=== PATIENT | male | born 1950 | race Two or more races ===

== ENCOUNTER 2018-10-24 09:02 | Emergency (ER) | payer MEDICARE, MEDICAID ==
[~2018-10-24] VITALS: Ht 165.1 cm; Wt 80.7 kg
[2018-10-24 10:04] LABS: Urine WBC None Seen /hpf (0 - 3)
[2018-10-24 10:13] LABS: Basophils # (auto) 0.1 uL; Basophils % (auto) 0.5 % (0.0-2.0); Eosinophils # (auto) 0.1 uL; Eosinophils % (auto) 0.6 % (0.0-7.0); Hematocrit 41.5 % (41.0-53.0); Hemoglobin 14.1 g/dL (13.5-17.5); Lymphocytes # (auto) 1.8 uL; Mean Corpuscular Hemoglobin 30.5 pg (28.0-32.0); Mean Corpuscular Hgb Conc. 33.9 g/dL (32.0-36.0); Mean Corpuscular Volume 89.8 fL (80.0-100.0); Monocytes # (auto) 0.5 uL; Neutrophils # (auto) 7.8 uL; Neutrophils % (auto) 75.9 % (37.0-80.0); Platelet Count (auto) 203 10^3/uL (140-450); Red Blood Cells 4.63 10^6/uL (4.5-5.90); White Blood Cell 10.3 10^3/uL (4.4-10.8)
[2018-10-24 10:14] LABS: Urine Bacteria NONE SEEN /hpf (None Seen); Urine Blood Negative /uL (Negative); Urine Specific Gravity 1.009 (1.001-1.035)
[2018-10-24 10:31] LABS: Alanine Aminotransferase 26 U/L (16-61); Albumin 3.8 g/dL (3.4-5.0); Anion Gap 10 (5-15); Aspartate Aminotransferase 12 U/L (15-37); BUN/Creatinine Ratio 9.6; Blood Urea Nitrogen 8 mg/dL (7-18); Calcium 8.4 mg/dL (8.5-10.1); Carbon Dioxide 23 mmol/L (21-32); Chloride 104 mmol/L (98-107); GFR African American 118 mL/min; GFR Non-African American 98 mL/min; Glucose 140 mg/dL (74-106); Potassium 3.4 mmol/L (3.5-5.1); Sodium 137 mmol/L (136-145)
[2018-10-24 10:36] LABS: Alkaline Phosphatase 44 U/L (45-117); Bilirubin, Total 0.8 mg/dL (0.2-1.0); Total Protein 6.9 g/dL (6.4-8.2)
[2018-10-24] MEDS ORDERED: POTASSIUM EFFERVESENT TAB 25 MEQ PO ONE (11:45)
[2018-10-24 13:10] VITALS: BP 124/59
== END 2018-10-24 13:15 | disposition home or self-care (01) ==
LOC: ER 09:02
DX: R33.9 Retention of urine, unspecified (principal); R10.30 Lower abdominal pain, unspecified; R30.0 Dysuria; R35.0 Frequency of micturition; E11.9 Type 2 diabetes mellitus without complications; I10 Essential (primary) hypertension; I25.810 Atherosclerosis of coronary artery bypass graft(s) without angina pectoris; Z88.1 Allergy status to other antibiotic agents
CPT/HCPCS: 36415; 51702; 71045; 80053; 81001; 84154; 84484; 85025

== ENCOUNTER 2018-10-25 17:21 | Emergency (ER) | payer MEDICARE, MEDICAID ==
[~2018-10-25] VITALS: Ht 165.1 cm; Wt 80.7 kg
[2018-10-25 17:53] VITALS: BP 161/50
== END 2018-10-25 20:39 | disposition left against medical advice (07) ==
LOC: ER 17:21
DX: R33.9 Retention of urine, unspecified (principal); Z53.21 Procedure and treatment not carried out due to patient leaving prior to being seen by health care provider

== ENCOUNTER 2018-10-29 09:19 | Emergency (ER) | payer MEDICARE, MEDICAID ==
[~2018-10-29] VITALS: Ht 162.6 cm; Wt 80.7 kg
[2018-10-29 10:25] VITALS: BP 157/69
== END 2018-10-29 10:59 | disposition home or self-care (01) ==
LOC: ER 09:19
DX: R33.9 Retention of urine, unspecified (principal); I25.10 Atherosclerotic heart disease of native coronary artery without angina pectoris; E11.9 Type 2 diabetes mellitus without complications; E78.00 Pure hypercholesterolemia, unspecified; I10 Essential (primary) hypertension; Z95.1 Presence of aortocoronary bypass graft; Z88.1 Allergy status to other antibiotic agents

== ENCOUNTER 2018-11-01 08:52 | Emergency (ER) | payer MEDICARE, MEDICAID ==
[~2018-11-01] VITALS: Ht 162.6 cm; Wt 80.7 kg
[2018-11-01 09:22] VITALS: BP 162/65
== END 2018-11-01 10:09 | disposition home or self-care (01) ==
LOC: ER 08:54
DX: Z46.6 Encounter for fitting and adjustment of urinary device (principal); E11.9 Type 2 diabetes mellitus without complications; E78.5 Hyperlipidemia, unspecified; I10 Essential (primary) hypertension; Z95.1 Presence of aortocoronary bypass graft; Z88.1 Allergy status to other antibiotic agents

== ENCOUNTER 2020-01-28 08:58 | Emergency (ER) | payer MEDICARE, MEDICAID ==
[2020-01-28] MEDS ORDERED: cloNIDine HCL 0.1 MG TAB PO ONE (09:45)
[2020-01-28 10:11] LABS: Albumin 3.9 g/dL (3.4-5.0); Anion Gap 9 (5-15); Blood Urea Nitrogen 11 mg/dL (7-18); Calcium 8.5 mg/dL (8.5-10.1); Carbon Dioxide 23 mmol/L (21-32); Chloride 106 mmol/L (98-107); Glucose 157 mg/dL (74-106); Potassium 3.6 mmol/L (3.5-5.1); Sodium 138 mmol/L (136-145)
[2020-01-28 10:17] LABS: Alanine Aminotransferase 63 U/L (16-61); Alkaline Phosphatase 49 U/L (45-117); Aspartate Aminotransferase 22 U/L (15-37); BUN/Creatinine Ratio 12.2; Bilirubin, Total 0.8 mg/dL (0.2-1.0); GFR African American 108 mL/min; GFR Non-African American 89 mL/min; Total Protein 7.5 g/dL (6.4-8.2)
[2020-01-28 10:41] LABS: Basophils # (auto) 0.1 10 ^3/uL (0-0.2); Basophils % (auto) 1.1 % (0.0-2.0); Eosinophils # (auto) 0.1 10 ^3/uL (0-0.8); Eosinophils % (auto) 1.8 % (0.0-7.0); Hematocrit 44.3 % (41.0-53.0); Lymphocytes # (auto) 2.7 10 ^3/uL (0.4-5.4); Lymphocytes % (auto) 33.1 % (10.0-50.0); Mean Corpuscular Hemoglobin 30.1 pg (28.0-32.0); Mean Corpuscular Hgb Conc. 33.9 g/dL (32.0-36.0); Mean Corpuscular Volume 88.8 fL (80.0-100.0); Monocytes # (auto) 0.4 10 ^3/uL (0-1.3); Monocytes % (auto) 4.7 % (0.0-12.0); Neutrophils # (auto) 4.9 10 ^3/uL (1.6-8.6); Neutrophils % (auto) 59.3 % (37.0-80.0); Platelet Count (auto) 204 10^3/uL (140-450); Red Blood Cells 4.99 10^6/uL (4.5-5.90); Red Cell Distribution Width 13.9 % (11.8-14.3); White Blood Cell 8.2 10^3/uL (4.4-10.8)
[2020-01-28 12:06] VITALS: BP 125/65
[2020-01-28 13:03] LABS: Urine Bacteria NONE SEEN /hpf (None Seen); Urine Blood Negative /uL (Negative); Urine Mucus FEW (None Seen); Urine Specific Gravity 1.012 (1.001-1.035); Urine WBC 1 /hpf (0 - 3)
== END 2020-01-28 13:21 | disposition home or self-care (01) ==
LOC: ER 08:58
DX: I10 Essential (primary) hypertension (principal); E11.65 Type 2 diabetes mellitus with hyperglycemia; E78.5 Hyperlipidemia, unspecified; Z88.1 Allergy status to other antibiotic agents
CPT/HCPCS: 36415; 70450; 80053; 81001; 82962; 84484; 85025

== ENCOUNTER 2020-06-16 09:54 | Emergency (ER) | payer MEDICARE, MEDICAID ==
[~2020-06-16] VITALS: Ht 165.1 cm; Wt 84.4 kg
[2020-06-16 09:54] VITALS: BP 168/73
[2020-06-16 10:32] LABS: Basophils # (auto) 0.1 10 ^3/uL (0-0.2); Eosinophils # (auto) 0.1 10 ^3/uL (0-0.8); Eosinophils % (auto) 0.8 % (0.0-7.0); Hematocrit 42.1 % (41.0-53.0); Hemoglobin 14.3 g/dL (13.5-17.5); Lymphocytes # (auto) 2.6 10 ^3/uL (0.4-5.4); Lymphocytes % (auto) 30.1 % (10.0-50.0); Mean Corpuscular Hemoglobin 30.4 pg (28.0-32.0); Mean Corpuscular Hgb Conc. 33.9 g/dL (32.0-36.0); Mean Corpuscular Volume 89.5 fL (80.0-100.0); Monocytes # (auto) 0.3 10 ^3/uL (0-1.3); Monocytes % (auto) 3.5 % (0.0-12.0); Neutrophils # (auto) 5.7 10 ^3/uL (1.6-8.6); Neutrophils % (auto) 64.6 % (37.0-80.0); Nucleated Red Blood Cells % 0.1 %; Platelet Count (auto) 194 10^3/uL (140-450); Red Blood Cells 4.71 10^6/uL (4.5-5.90); White Blood Cell 8.8 10^3/uL (4.4-10.8)
[2020-06-16 10:39] LABS: Urine Bacteria FEW /hpf (None Seen); Urine Blood Negative /uL (Negative); Urine Mucus FEW (None Seen); Urine Specific Gravity 1.025 (1.001-1.035); Urine WBC 1 /hpf (0 - 3)
[2020-06-16 11:49] LABS: BUN/Creatinine Ratio 12.5; Bilirubin, Total 0.7 mg/dL (0.2-1.0)
== END 2020-06-16 12:48 | disposition home or self-care (01) ==
LOC: ER 09:54
DX: N43.3 Hydrocele, unspecified (principal); I10 Essential (primary) hypertension; E11.9 Type 2 diabetes mellitus without complications; E78.5 Hyperlipidemia, unspecified
CPT/HCPCS: 36415; 76870; 80053; 81001; 85025